=== PATIENT | female | born 1960 | race Caucasian/White ===

== ENCOUNTER 2021-09-26 11:51 | Observation (INO) ==
[2021-09-26] MEDS ORDERED: ONDANSETRON 4 MG/2 ML VIAL IV STA ×2 (13:29→16:31)
[2021-09-26] MEDS ORDERED: SODIUM CHLORIDE 0.9% 1,000 ML IV STA ×2 (13:29→16:31)
[2021-09-26 13:54] LABS: Basophils % 0.3 % (0.0-0.8); Eosinophils # 0.1 10*3/uL (0.0-0.87); Eosinophils % 1.6 % (0.00-10.9); Hematocrit 39.6 VOL% (35.7-47.0); Immature Granulocytes % 0.5 %; Immature Granulocytes Absolute 0.04 #; Lymphocytes # 1.4 10*3/uL (1.4-4.0); Lymphocytes % 17.9 % (21.3-54.2); Mean Corpuscular HGB Conc 32.8 GM/DL (32-36); Mean Corpuscular Volume 115.5 FL (87-102); Mean Platelet Volume 8.6 FL (9.6-12.0); Monocytes % 11.8 % (1.7-12.7); Neutrophils % 67.9 % (38.7-73.9); Platelet Count 173 T/CUMM (130-400); Red Blood Count 3.43 MC/CUMM (3.8-5.5); Red Cell Distribution Width 11.8 % (9.3-17.3); White Blood Count 7.7 T/CUMM (4-12)
[2021-09-26 14:21] LABS: Bacteria,Urine Occasional /HPF (Few); Blood, Urine Small mg/dL (Negative); Glucose,Urine (UA) Negative (Negative); Ketones,Urine 5 mg/dL (Negative); Mucus,Urine Occasional /LPF (Occasional); Nitrite,Urine Positive (Negative); Protein,Urine 100 MG/DL; RBC,Urine 14 /HPF (0-4); Squamous Epithelial Cell,Urine Occasional /HPF (0-10); Urine Appearance CLOUDY (Clear); Urine Color Amber (Yellow); Urine Specific Gravity 1.024 (1.001-1.035)
[2021-09-26 14:23] LABS: Bilirubin,Urine Small mg/dL (Negative)
[2021-09-26 14:28] LABS: Albumin 3.8 G/DL (3.4-5.0); Bilirubin,Total 1.2 MG/DL (0.20-1.00); Osmolality,Calculated 266.2 MOS/KG (273-304); Potassium 3.7 MMOL/L (3.5-5.1); Total Protein 6.9 G/DL (6.4-8.2)
[2021-09-26] MEDS ORDERED: KETOROLAC 30 MG/1 ML VIAL IV STA (14:45)
[2021-09-26] MEDS ORDERED: cefTRIAXone 1,000 MG in SODIUM CHLORIDE 0.9% 100 ML IV STA (14:45)
[2021-09-26] MEDS ORDERED: MORPHINE 2 MG/1 ML SYRINGE IV STA (16:31)
[2021-09-26] MEDS ORDERED: ONDANSETRON 4 MG/2 ML VIAL IV PRN (17:27)
[2021-09-26] MEDS ORDERED: hydrALAZINE 20 MG/1 ML VIAL IV PRN (17:27)
[2021-09-26] MEDS ORDERED: ALBUTEROL/IPRATROPIUM 3 ML NEB RESP TX PRN (17:27)
[2021-09-26] MEDS ORDERED: diphenhydrAMINE CAP 25 MG CAPSULE PO PRN (17:27)
[2021-09-26] MEDS ORDERED: GLUCAGON 1 MG VIAL IM PRN (17:27)
[2021-09-26] MEDS ORDERED: NICOTINE 21 MG/24 HR PATCH TRANSDERM PRN (17:27)
[2021-09-26] MEDS ORDERED: DEXTROSE 50% 25 GM/50 ML SYRINGE IV PRN (17:34)
[2021-09-26 18:05] LABS: Hepatitis B Core IgM Quant 0.16 Index; Hepatitis B Surface Ag Quant < 0.10 Index; Hepatitis B Surface Ag Result Non-Reactive (NonReactive); Hepatitis C Virus Ab Quant 0.08 Index; Hepatitis C Virus Ab Result Non-Reactive (NonReactive)
[2021-09-26] MEDS: SODIUM CHLORIDE 0.9% 1,000 ML IV SCH (18:25)
[2021-09-26] MEDS: ENOXAPARIN 40 MG/0.4 ML SYRINGE SUBCUT SCH (18:25)
[2021-09-26] MEDS: KETOROLAC 15 MG/1 ML VIAL IV PRN (22:35)
[2021-09-27] MEDS: SODIUM CHLORIDE 0.9% 1,000 ML IV SCH ×3 (01:28→18:10)
[2021-09-27 06:41] LABS: Basophils % 0.5 % (0.0-0.8); Eosinophils # 0.2 10*3/uL (0.0-0.87); Eosinophils % 4.4 % (0.00-10.9); Hematocrit 35.3 VOL% (35.7-47.0); Hemoglobin 11.5 GM/DL (12.0-16.0); Immature Granulocytes % 0.5 %; Immature Granulocytes Absolute 0.02 #; Lymphocytes # 1.6 10*3/uL (1.4-4.0); Lymphocytes % 36.2 % (21.3-54.2); Mean Corpuscular HGB Conc 32.6 GM/DL (32-36); Mean Corpuscular Volume 120.9 FL (87-102); Mean Platelet Volume 8.8 FL (9.6-12.0); Monocytes % 15.9 % (1.7-12.7); Neutrophils % 42.5 % (38.7-73.9); Platelet Count 135 T/CUMM (130-400); Red Blood Count 2.92 MC/CUMM (3.8-5.5); Red Cell Distribution Width 11.7 % (9.3-17.3); White Blood Count 4.3 T/CUMM (4-12)
[2021-09-27 07:05] LABS: Risk Ratio 3.19; Thyroid Stimulating Hormone 1.92 uIU/ml (0.358-3.74)
[2021-09-27 07:15] LABS: Eosinophils 2 % (0-10); Lymphocytes 28 % (20-55); Platelet Estimate Normal; Segmented Neutrophils 57 % (50-85); Total Cells Counted 100
[2021-09-27 07:26] LABS: Albumin 2.8 G/DL (3.4-5.0); Bilirubin,Total 1.2 MG/DL (0.20-1.00); Calcium 8.8 MG/DL (8.5-10.1); Osmolality,Calculated 276.4 MOS/KG (273-304); Potassium 3.8 MMOL/L (3.5-5.1)
[2021-09-27 08:22] LABS: Albumin 2.9 G/DL (3.4-5.0); Bilirubin,Direct 0.46 MG/DL (0.0-0.20); Bilirubin,Indirect 0.5 MG/DL (0.0-1.0)
[2021-09-27] MEDS ORDERED: PANTOPRAZOLE 40 MG TABLET PO SCH (09:00)
[2021-09-27] MEDS: PANTOPRAZOLE 40 MG VIAL IV SCH (09:04)
[2021-09-27] MEDS: KETOROLAC 15 MG/1 ML VIAL IV PRN ×2 (09:05→17:20)
[2021-09-27] MEDS ORDERED: cefTRIAXone 1,000 MG in SODIUM CHLORIDE 0.9% 100 ML IV SCH (15:00)
[2021-09-27] MEDS: ENOXAPARIN 40 MG/0.4 ML SYRINGE SUBCUT SCH (16:35)
[2021-09-28] MEDS: SODIUM CHLORIDE 0.9% 1,000 ML IV SCH (04:48)
[2021-09-28 06:16] LABS: Basophils % 0.4 % (0.0-0.8); Eosinophils # 0.2 10*3/uL (0.0-0.87); Eosinophils % 4.2 % (0.00-10.9); Hematocrit 34.3 VOL% (35.7-47.0); Hemoglobin 11.3 GM/DL (12.0-16.0); Immature Granulocytes % 0.2 %; Immature Granulocytes Absolute 0.01 #; Lymphocytes # 1.4 10*3/uL (1.4-4.0); Lymphocytes % 30.6 % (21.3-54.2); Mean Corpuscular HGB Conc 32.9 GM/DL (32-36); Mean Corpuscular Volume 119.1 FL (87-102); Mean Platelet Volume 9.3 FL (9.6-12.0); Monocytes % 15.7 % (1.7-12.7); Neutrophils % 48.9 % (38.7-73.9); Platelet Count 153 T/CUMM (130-400); Red Blood Count 2.88 MC/CUMM (3.8-5.5); Red Cell Distribution Width 11.5 % (9.3-17.3); White Blood Count 4.5 T/CUMM (4-12)
[2021-09-28 06:36] LABS: Albumin 2.9 G/DL (3.4-5.0); Bilirubin,Direct 0.23 MG/DL (0.0-0.20); Bilirubin,Total 1.2 MG/DL (0.20-1.00); Total Protein 6.2 G/DL (6.4-8.2)
[2021-09-28 06:38] LABS: Atypical Lymphocytes Few; Eosinophils 7 % (0-10); Lymphocytes 27 % (20-55); Macrocytosis Slight; Segmented Neutrophils 52 % (50-85); Total Cells Counted 100
[2021-09-28 06:39] LABS: Albumin 2.8 G/DL (3.4-5.0); Bilirubin,Total 1.5 MG/DL (0.20-1.00); Calcium 8.4 MG/DL (8.5-10.1); Hypochromasia Slight; Osmolality,Calculated 282.1 MOS/KG (273-304); Platelet Estimate Adequate; Potassium 4.5 MMOL/L (3.5-5.1); Total Protein 6.2 G/DL (6.4-8.2)
[2021-09-28] MEDS: KETOROLAC 15 MG/1 ML VIAL IV PRN (07:00)
[2021-09-28] MEDS: PANTOPRAZOLE 40 MG VIAL IV SCH (08:41)
[2021-09-28 12:00] VITALS: BP 117/57
== END 2021-09-28 14:30 | disposition home or self-care (01) ==
LOC: N.ED 11:51 → N.EDINP 11:51 → SUATTDRO 17:36 → N.3E 17:45
PROVIDERS: ADMIT Internal Medicine; ATTEND Internal Medicine